=== PATIENT | male | born 1965 | race Caucasian/White ===

== ENCOUNTER 2020-09-30 16:24 | Emergency (ER) | payer MEDICAID, SELFPAY ==
[~2020-09-30] VITALS: Ht 170.2 cm; Wt 63.5 kg
[2020-09-30 16:35] VITALS: Ht 170.2 cm; Wt 63.5 kg
[2020-09-30 17:26] LABS: BASOPHIL % 0.4 % (0.2-1.5); PLATELET COUNT 343 x10^3mcL (152-348); RED CELL DISTRIBUTION WIDTH 12.5 % (12.1-16.2)
[2020-09-30 17:32] LABS: CALCIUM 9.2 mg/dL (8.5-10.1); CARBON DIOXIDE 25.4 mmol/L (21-32); CHLORIDE SERUM 98 mmol/L (98-107); CREATININE SERUM 0.9 mg/dL (0.7-1.3); GFR1 > 60 mL/min; GLUCOSE SERUM 293 mg/dL (74-106); POTASSIUM SERUM 4.2 mmol/L (3.5-5.1); SODIUM SERUM 134 mmol/L (136-145)
[2020-09-30 17:36] LABS: ALKALINE PHOSPHATASE 86 U/L (46-116); ALT/SGPT 25 U/L (16-63); AST/SGOT 20 U/L (15-37); BILIRUBIN TOTAL 0.6 mg/dL (0.20-1.00); TOTAL PROTEIN, SERUM 6.6 g/dL (6.4-8.2)
[2020-09-30 17:45] LABS: ALBUMIN 2.7 g/dL (3.4-5.0)
[2020-09-30 18:22] VITALS: BP 141/96
== END 2020-09-30 19:04 | disposition home or self-care (01) ==
LOC: ED 16:24
PROVIDERS: Student in an Organized Health Care Education/Training Program
DX: U07.1 COVID-19 (principal); J12.89 Other viral pneumonia; E11.9 Type 2 diabetes mellitus without complications
CPT/HCPCS: 82962; Q0162